=== PATIENT | female | born 1980 | race Caucasian/White ===

== ENCOUNTER 2020-06-27 08:20 | Outpatient (REF) | payer OTHER, SELFPAY ==
[2020-06-27 11:19] LABS: MANUAL DIFF FLAG NO
[2020-06-27 11:25] LABS: Basophils Absolute Auto 0.1 X10*3/uL (0.0-0.2); Basophils Percent Auto 0.6 % (0-2); Eosinophils Absolute Auto 0.2 X10*3/uL (0.0-0.4); Eosinophils Percent Auto 2.1 % (0-4); Hematocrit 38.3 % (37-47); Hemoglobin 12.9 g/dl (12.0-16.0); Imm Gran Abs Auto 0.05 X10*3/uL (0.00-0.03); Imm Gran Pct Auto 0.5 % (0.0-0.4); Lymphocytes Absolute Auto 1.9 X10*3/uL (1.2-4.9); Lymphocytes Percent Auto 18.2 % (20-40); Mean Corpuscular HGB Conc 33.7 g/dl (31.0-35.0); Mean Corpuscular Hemoglobin 30.7 pg (27.0-33.0); Mean Corpuscular Volume 91.2 fL (80-98); Mean Platelet Volume 10.3 fL (9.4-12.3); Monocytes Absolute Auto 0.7 X10*3/uL (0.1-1.2); Monocytes Percent Auto 6.4 % (2-11); Neutrophils Absolute Auto 7.6 X10*3/uL (2.0-8.3); Neutrophils Percent Auto 72.2 % (45-73); Platelet Count 288 X10*3/uL (160-400); Red Cell Distribution Width 12.4 % (11.0-16.0); White Blood Count 10.6 X10*3/uL (4.8-10.8)
[2020-06-27 11:42] LABS: Cholesterol 192 mg/dL; HDL Cholesterol 46 mg/dL; LDL Cholesterol Calculated 117 mg/dl; Triglycerides 149 mg/dL
[2020-06-27 12:15] LABS: TSH reflex Free T4 1.27 mIU/mL (0.32-4.0)
== END 2020-06-27 08:21 | disposition home or self-care (01) ==
LOC: HO.HMGCLDS 08:20
PROVIDERS: PCP Internal Medicine; Visit Provider Internal Medicine
DX: Z00.01 Encounter for general adult medical examination with abnormal findings (principal); Z13.220 Encounter for screening for lipoid disorders; Z13.29 Encounter for screening for other suspected endocrine disorder
CPT/HCPCS: 36415; 80061; 84443; 85025

== ENCOUNTER 2021-03-16 08:07 | Outpatient (REF) | payer OTHER, SELFPAY ==
[2021-03-16 11:34] LABS: Thyroid Stimulating Hormone 1.49 uIU/mL (0.32-4.0)
[2021-03-17 11:01] LABS: Follicle Stimulating Hormone 3.8 mIU/mL
== END 2021-03-16 08:08 | disposition home or self-care (01) ==
LOC: HO.LAB 08:07
PROVIDERS: PCP Internal Medicine; Visit Provider Advanced Practice Midwife
DX: Z01.419 Encounter for gynecological examination (general) (routine) without abnormal findings (principal); R23.2 Flushing; L73.2 Hidradenitis suppurativa
CPT/HCPCS: 36415; 83001; 84443

== ENCOUNTER 2022-04-09 13:40 | Outpatient (REF) | payer OTHER, SELFPAY ==
[2022-04-09 16:53] LABS: Estimated Average Glucose 117 mg/dL; Hemoglobin A1c % 5.7 %
== END 2022-04-09 13:41 | disposition home or self-care (01) ==
LOC: HO.HMGCLDS 13:40
PROVIDERS: PCP Internal Medicine; Visit Provider Physician Assistant
DX: M79.671 Pain in right foot (principal); M79.672 Pain in left foot
CPT/HCPCS: 36415; 83036

== ENCOUNTER 2022-04-14 14:04 | Outpatient (REF) | payer OTHER, SELFPAY ==
--- NOTE | ~2022-04-14 | XR_ITS ---
EXAMINATION: XR FOOT, RIGHT XR FOOT, LEFT CLINICAL INFORMATION: Right foot pain. Left foot pain. COMPARISON: None TECHNIQUE: 3 views of each foot. FINDINGS: RIGHT FOOT: Normal osseous mineralization. No focal erosion is noted. There is no evidence of acute fracture or dislocation. Plantar and posterior calcaneal spurs are noted at the insertion of plantar aponeurosis and Achilles tendon respectively. No significant degenerative changes are noted in the foot otherwise. No dystrophic soft tissue calcifications. LEFT FOOT: Normal osseous mineralization. No focal erosion. Very mild hallux valgus deformity is noted at 1st MTP joint with mild degenerative changes. No evidence of acute fracture or dislocation. Plantar calcaneal spur is noted at the insertion of plantar aponeurosis. A somewhat curvilinear density is noted in the vicinity of the calcaneocuboid articulation on the plantar aspect, best seen on the lateral and oblique views. XR/XR foot LT min 3V IMPRESSION: 1. No evidence of acute osseous abnormality in the right foot. No focal erosion. Right plantar and posterior calcaneal spurs. 2. No acute osseous abnormality in the left foot. No focal erosion. Left plantar calcaneal spur. A curvilinear density in the vicinity of calcaneocuboid articulation on the plantar aspect is nonspecific, may represent dystrophic soft tissue calcification or ossification.
--- NOTE | ~2022-04-14 | XR_ITS ---
EXAMINATION: XR FOOT, RIGHT XR FOOT, LEFT CLINICAL INFORMATION: Right foot pain. Left foot pain. COMPARISON: None TECHNIQUE: 3 views of each foot. FINDINGS: RIGHT FOOT: Normal osseous mineralization. No focal erosion is noted. There is no evidence of acute fracture or dislocation. Plantar and posterior calcaneal spurs are noted at the insertion of plantar aponeurosis and Achilles tendon respectively. No significant degenerative changes are noted in the foot otherwise. No dystrophic soft tissue calcifications. LEFT FOOT: Normal osseous mineralization. No focal erosion. Very mild hallux valgus deformity is noted at 1st MTP joint with mild degenerative changes. No evidence of acute fracture or dislocation. Plantar calcaneal spur is noted at the insertion of plantar aponeurosis. A somewhat curvilinear density is noted in the vicinity of the calcaneocuboid articulation on the plantar aspect, best seen on the lateral and oblique views. XR/XR foot RT min 3V IMPRESSION: 1. No evidence of acute osseous abnormality in the right foot. No focal erosion. Right plantar and posterior calcaneal spurs. 2. No acute osseous abnormality in the left foot. No focal erosion. Left plantar calcaneal spur. A curvilinear density in the vicinity of calcaneocuboid articulation on the plantar aspect is nonspecific, may represent dystrophic soft tissue calcification or ossification.
== END 2022-04-14 14:05 | disposition home or self-care (01) ==
LOC: HO.HMGCX 14:04
PROVIDERS: PCP Internal Medicine; Visit Provider Internal Medicine
DX: M79.671 Pain in right foot (principal); M79.672 Pain in left foot
CPT/HCPCS: 73630

== ENCOUNTER 2022-07-22 10:35 | Outpatient (REF) | payer OTHER, SELFPAY ==
[2022-07-23 12:10] LABS: BV Int Neg Control Negative (Negative); BV Int Pos Control Positive (Positive)
[2022-07-24 03:04] LABS: HPV mRNA E6/E7 rflx Not Detected (Not Detected)
== END 2022-07-22 10:36 | disposition home or self-care (01) ==
LOC: HO.LNP 10:35
PROVIDERS: PCP Internal Medicine; Visit Provider Advanced Practice Midwife
DX: Z01.419 Encounter for gynecological examination (general) (routine) without abnormal findings (principal); R23.2 Flushing; N64.59 Other signs and symptoms in breast
CPT/HCPCS: 87480; 87510; 87624; 87660; 88142

== ENCOUNTER 2022-08-06 10:41 | Outpatient (REF) | payer OTHER, SELFPAY ==
--- NOTE | ~2022-08-06 | MM_ITS ---
EXAMINATION: MM DIAGNOSTIC DIGITAL BREAST TOMOSYNTHESIS, BILATERAL US BREAST TARGETED, BILATERAL CLINICAL INFORMATION: Left breast thickening 12 o'clock location. The lifetime risk of breast cancer based on the Tyrer-Cuzick Model is 10.7%. COMPARISON: Mammography: None. TECHNIQUE: Digital breast tomosynthesis is performed in both the craniocaudal and mediolateral oblique views along with computer-aided detection (CAD). Synthesized 2D images are generated from the tomosynthesis. Additional spot compression views of bilateral breasts performed in craniocaudal and mediolateral oblique projections as well as 90 degree mediolateral view of the left breast. Bilateral targeted breast ultrasound. FINDINGS: There are scattered areas of fibroglandular density (ACR BI-RADS breast composition Category b). Within the central aspect of the right breast approximately 6 cm from the nipple there is a circumscribed and mildly lobulated 5 mm density without definite fatty cleft. No suspicious grouping of microcalcifications or spiculated mass identified. Spot compression views demonstrate persistence of the density. About the deep upper outer aspect of the left breast there is what appears be a partially circumscribed density measuring 7 mm in diameter approximately 9 cm from the nipple. Spot compression views demonstrate some persistence of the density partially effacing and possibly representing superimposition of fibroglandular tissue rather than a true mass. Targeted ultrasound evaluation of both breasts do not demonstrate any abnormal cystic or solid masses. No region of abnormal distal sound shadowing was identified. No edematous change within the parenchyma is seen. Six-month follow-up bilateral mammography is suggested to ensure stability. Results are discussed with the patient at time of visit. MM/MM tomosynthesis diagnostic BI IMPRESSION: Bilateral breast densities for six-month follow-up as described. ASSESSMENT: BI-RADS 3: Probably Benign. RECOMMENDATION: Diagnostic mammography in 6 months. This patient's information was entered into a reminder system with a target due date for their next mammogram.
== END 2022-08-06 10:42 | disposition home or self-care (01) ==
LOC: HO.MAMMO 10:41
PROVIDERS: Visit Provider Advanced Practice Midwife
DX: N64.59 Other signs and symptoms in breast (principal)
CPT/HCPCS: 76642; 77062; 77066

== ENCOUNTER 2022-12-14 12:35 | Outpatient (REF) | payer OTHER, SELFPAY ==
[2022-12-14 14:29] LABS: Alanine Aminotransferase 18 U/L (0-31); Alkaline Phosphatase 62 U/L (39-117); Anion Gap 14 (12-20); Aspartate Amino Transferase 17 U/L (5-31); Bilirubin Total 0.5 mg/dL (0.0-1.0); Blood Urea Nitrogen 11 mg/dL (9-16); Calcium 9.3 mg/dL (8.4-10.2); Carbon Dioxide 20 mmol/L (22-29); Chloride 106 mmol/L (96-108); Estimated Glomerular Filt Rate > 60; Glucose Fasting 91 mg/dL (60-99); Potassium 4.1 mmol/L (3.3-5.1); Sodium 136 mmol/L (135-145); Total Protein 7.5 g/dL (6.5-8.0)
[2022-12-14 14:57] LABS: Folate 13.1 ng/mL (> or = 4.0); TSH reflex Free T4 2.25 uIU/mL (0.32-4.0); Vitamin B12 559 pg/mL (200-900); Vitamin D 25-OH Total 32.7 ng/mL (>30)
== END 2022-12-14 12:36 | disposition home or self-care (01) ==
LOC: HO.HMGCLDS 12:35
PROVIDERS: PCP Internal Medicine; Visit Provider Internal Medicine
DX: F41.8 Other specified anxiety disorders (principal); E66.9 Obesity, unspecified; I10 Essential (primary) hypertension
CPT/HCPCS: 36415; 80053; 82306; 82607; 82746; 84443

== ENCOUNTER 2023-02-03 09:04 | Outpatient (AMB) | payer OTHER, SELFPAY ==
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
[2023-02-03 09:58] VITALS: BP 120/72; PULSE 87; TEMP 36.6; O2SAT 98
== END 2023-02-03 10:10 | disposition home or self-care (01) ==
PROVIDERS: PCP Internal Medicine; Visit Provider Physician Assistant
DX: L03.90 Cellulitis, unspecified (principal)
CPT/HCPCS: 99213

== ENCOUNTER 2023-03-01 11:34 | Outpatient (REF) | payer OTHER, SELFPAY ==
--- NOTE | ~2023-03-01 | MM_ITS ---
EXAMINATION: MM DIAGNOSTIC DIGITAL BREAST TOMOSYNTHESIS, BILATERAL CLINICAL INFORMATION: The patient presents for short interval follow-up of a right breast focal asymmetry in the left breast asymmetry. The lifetime risk of breast cancer based on the Tyrer-Cuzick Model is 10.7%. COMPARISON: Mammography: This study is compared to the prior mammograms dating back to 08/06/2022. TECHNIQUE: Digital breast tomosynthesis is performed in both the craniocaudal and mediolateral oblique views along with computer-aided detection (CAD). Synthesized 2D images are generated from the tomosynthesis. Bilateral 90 degree views of each breast, CC and MLO spot compression of the right breast and MLO spot compression of the left breast. FINDINGS: There are scattered areas of fibroglandular density (ACR BI-RADS breast composition Category b). Bilateral additional mammographic imaging reveals no persistent underlying abnormalities. There are no mammographic signs of malignancy. Results are provided to the patient at time of visit by the technologist. MM/MM tomosynthesis diagnostic BI IMPRESSION: No mammographic evidence of malignancy. ASSESSMENT: BI-RADS BI-RADS 1 - Negative RECOMMENDATION: 1 year F/U This patient's information was entered into a reminder system with a target due date for their next mammogram.
== END 2023-03-01 11:35 | disposition home or self-care (01) ==
LOC: HO.MAMMO 11:34
PROVIDERS: PCP Internal Medicine; Visit Provider Internal Medicine
DX: R92.2 Inconclusive mammogram (principal)
CPT/HCPCS: 77062; 77066

== ENCOUNTER → 2023-03-01 12:00 | Outpatient (BNV) | payer OTHER, SELFPAY | PROVIDERS: PCP Internal Medicine; Visit Provider Radiology Diagnostic Radiology | DX: N64.59 Other signs and symptoms in breast (principal) | CPT/HCPCS: 77062; 77066 ==

== ENCOUNTER 2023-03-11 10:41 | Outpatient (AMB) | payer OTHER, SELFPAY ==
[2023-03-11 10:54] VITALS: BP 122/70; PULSE 110; O2SAT 98; BMI 39.9
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
== END 2023-03-11 12:15 | disposition home or self-care (01) ==
PROVIDERS: PCP Internal Medicine; Visit Provider Internal Medicine
DX: E66.09 Other obesity due to excess calories (principal); Z68.39 Body mass index [BMI] 39.0-39.9, adult
CPT/HCPCS: 99213; 99499

== ENCOUNTER 2023-05-05 13:05 | Outpatient (AMB) | payer OTHER, SELFPAY ==
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
[2023-05-05 13:07] VITALS: BP 142/80; PULSE 102; TEMP 36.6; O2SAT 98; BMI 40.3
== END 2023-05-05 14:07 | disposition home or self-care (01) ==
PROVIDERS: PCP Internal Medicine; Visit Provider Nurse Practitioner Family
DX: M54.50 Low back pain, unspecified (principal)
CPT/HCPCS: 99213

== ENCOUNTER 2023-05-05 13:32 | Outpatient (REF) | payer OTHER, SELFPAY ==
--- NOTE | ~2023-05-05 | XR_ITS ---
EXAMINATION: XR LUMBOSACRAL SPINE CLINICAL INFORMATION: Low back pain. COMPARISON: Radiograph lumbar spine 04/14/2009. TECHNIQUE: Three views of the lumbosacral spine. FINDINGS: Transitional anatomy with lumbarization of S1. No evidence of acute compression deformity or traumatic subluxation. Mild to moderate intervertebral disc height loss and facet arthropathy in the lower lumbar spine leading to certain degree of neural foraminal encroachment. Multilevel anterior osteophytes, more noticeable in the upper lumbar spine. Symmetric SI joints. No significant paraspinal soft tissue abnormality. XR/XR lumbar spine 2-3V IMPRESSION: 1. No acute compression deformity or malalignment. 2. Mild to moderate lower lumbar spondylosis.
== END 2023-05-05 13:33 | disposition home or self-care (01) ==
LOC: HO.HMGCX 13:32
PROVIDERS: PCP Internal Medicine; Visit Provider Nurse Practitioner Family
DX: M54.50 Low back pain, unspecified (principal)
CPT/HCPCS: 72100

== ENCOUNTER 2023-07-26 10:12 | Outpatient (AMB) | payer OTHER, SELFPAY ==
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
[2023-07-26 10:25] VITALS: BP 124/84; BMI 40.3
== END 2023-07-26 10:54 | disposition home or self-care (01) ==
PROVIDERS: Visit Provider Advanced Practice Midwife
DX: Z01.419 Encounter for gynecological examination (general) (routine) without abnormal findings (principal)
CPT/HCPCS: 99396

== ENCOUNTER → 2023-07-26 10:12 | Outpatient (BNVA) | payer OTHER, SELFPAY | PROVIDERS: Visit Provider Advanced Practice Midwife | DX: Z01.419 Encounter for gynecological examination (general) (routine) without abnormal findings (principal) | CPT/HCPCS: 99396 ==

== ENCOUNTER 2023-07-27 07:17 | Outpatient (REF) | payer OTHER, SELFPAY ==
[2023-07-27 13:24] LABS: HCG Quantitative < 2 mIU/mL
[2023-07-29 09:54] LABS: Follicle Stimulating Hormone 6.8 mIU/mL; Prolactin 6.7 ng/mL
[2023-07-29 11:53] LABS: DHEA Sulfate 200 mcg/dL (15-205)
[2023-08-02 14:08] LABS: Testosterone, Free 3.8 pg/mL (0.1-6.4); Testosterone, Total 30 ng/dL (2-45)
== END 2023-07-27 07:18 | disposition home or self-care (01) ==
LOC: HO.HMGCLDS 07:17
PROVIDERS: PCP Internal Medicine; Visit Provider Advanced Practice Midwife
DX: L68.0 Hirsutism (principal); N91.2 Amenorrhea, unspecified; R23.2 Flushing
CPT/HCPCS: 36415; 82627; 83001; 83498; 84146; 84402; 84403; 84702

== ENCOUNTER 2023-08-10 07:33 | Outpatient (AMB) | payer OTHER, SELFPAY ==
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
[2023-08-10 07:42] VITALS: BP 138/88; BMI 40.3
== END 2023-08-10 08:11 | disposition home or self-care (01) ==
PROVIDERS: PCP Internal Medicine; Visit Provider Advanced Practice Midwife
DX: N91.1 Secondary amenorrhea (principal); Z71.2 Person consulting for explanation of examination or test findings
CPT/HCPCS: 99213

== ENCOUNTER → 2023-08-10 07:33 | Outpatient (BNVA) | payer OTHER, SELFPAY | PROVIDERS: PCP Internal Medicine; Visit Provider Advanced Practice Midwife | DX: Z71.2 Person consulting for explanation of examination or test findings (principal); N91.1 Secondary amenorrhea | CPT/HCPCS: 99212 ==

== ENCOUNTER 2023-08-24 12:59 | Outpatient (AMB) | payer OTHER, SELFPAY ==
[2023-08-24 13:30] VITALS: BP 138/74; PULSE 98; O2SAT 97; BMI 40.5
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
== END 2023-08-24 15:49 | disposition home or self-care (01) ==
PROVIDERS: PCP Internal Medicine; Visit Provider Internal Medicine
DX: R20.8 Other disturbances of skin sensation (principal); R09.89 Other specified symptoms and signs involving the circulatory and respiratory systems; B35.1 Tinea unguium
CPT/HCPCS: 99213

== ENCOUNTER 2023-08-26 15:03 | Outpatient (AMB) | payer OTHER, SELFPAY ==
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
[2023-08-26 15:22] VITALS: BP 130/80; BMI 40.4
== END 2023-08-26 15:48 | disposition home or self-care (01) ==
LOC: HO.HWS 15:03
PROVIDERS: PCP Internal Medicine; Visit Provider Advanced Practice Midwife
DX: N92.6 Irregular menstruation, unspecified (principal)
CPT/HCPCS: 99213

== ENCOUNTER → 2023-08-26 15:03 | Outpatient (BNVA) | payer OTHER, SELFPAY | PROVIDERS: PCP Internal Medicine; Visit Provider Advanced Practice Midwife | DX: N92.6 Irregular menstruation, unspecified (principal) | CPT/HCPCS: 99212 ==

== ENCOUNTER 2023-09-14 13:07 | Outpatient (REF) | payer OTHER, SELFPAY ==
--- NOTE | ~2023-09-14 | US_ITS ---
EXAMINATION: Noninvasive assessment of the arteries of both lower extremities to include a single level PVR exam and ANKLE BRACHIAL INDICES (ABIs). CLINICAL INFORMATION: Peripheral vascular disease COMPARISON: None available. TECHNIQUE: The ankle/brachial indices of the distal posterior tibial and the dorsalis pedis arteries were obtained of the lower extremity arterial system bilaterally; along with pressures and pulse volume recordings at the ankle level. The study was performed at rest. FINDINGS: 1. ANKLE-BRACHIAL INDICES: RIGHT: 1.06 LEFT: 1.04 2. ANKLE PVR WAVEFORMS: RIGHT: Abnormal LEFT: Abnormal US/US STEPHIE complete IMPRESSION: Normal resting peripheral arterial testing without evidence of hemodynamically significant stenosis. Note, there is symmetric loss of the normal dicrotic notch of the PVR waveforms.
== END 2023-09-14 13:08 | disposition home or self-care (01) ==
LOC: HO.US 13:07
PROVIDERS: PCP Internal Medicine; Visit Provider Internal Medicine
DX: R09.89 Other specified symptoms and signs involving the circulatory and respiratory systems (principal); R20.8 Other disturbances of skin sensation
CPT/HCPCS: 93923

== ENCOUNTER 2023-09-23 14:35 | Outpatient (REF) | payer OTHER, SELFPAY ==
--- NOTE | 2023-09-23 14:37 | EMG_ITS ---
Chief complaint: At least 6 months of burning on both feet but denies back pain. Reviewed past lumbar x-ray which showed multilevel spondylosis. Reason for referral: Evaluate for neuropathy Referred by: Dr. Miller Procedure done: Bilateral lower extremity NCS/EMG Precautions and/or limitations: None The limb temperature was monitored continuously and remained between 32-36 degrees C during the performance of the NCS. Nerve Conduction Studies Anti Sensory Summary Table ?Stim Site NR Onset (ms) Norm Onset (ms) Peak (ms) Norm Peak (ms) O-P Amp (?V) Norm O-P Amp Site1 Site2 Delta-0 (ms) Dist (cm) Jason (m/s) Norm Jason (m/s) Left Sural Anti Sensory (Lat Mall) Calf ? 1.0 3.1 <4.0 5.8 >5.0 Calf Lat Mall 1.0 14.0 140 Calf#2 ? 1.9 2.9 11.6 Right Sural Anti Sensory (Lat Mall) Calf ? 1.8 2.8 <4.0 5.4 >5.0 Calf Lat Mall 1.8 14.0 78 Calf#2 ? 2.3 3.2 4.4 Motor Summary Table ?Stim Site NR Onset (ms) Norm Onset (ms) O-P Amp (mV) Norm O-P Amp iAmp (mV) Amp (1st) (%) Site1 Site2 Delta-0 (ms) Dist (cm) Jason (m/s) Norm Jason (m/s) Right Peroneal Motor (Ext Dig Brev) Ankle ? 4.7 <4.0 2.1 >2.5 2.5 100.0 Ankle Ext Dig Brev 4.7 0.0 B Fib ? 12.6 1.5 2.0 71.4 B Fib Ankle 7.9 33.0 42 >40 Poplt ? 14.1 1.4 1.9 66.7 Poplt B Fib 1.5 8.6 57 >40 Left Tibial Motor (Abd Ferraro Brev) Ankle ? 4.7 <5 0.7 >2.5 0.7 100.0 Ankle Abd Ferraro Brev 4.7 0.0 Knee ? 16.4 1.2 1.7 171.4 Knee Ankle 11.7 39.0 33 >40 Right Tibial Motor (Abd Ferraro Brev) Ankle ? 4.5 <5 1.1 >2.5 1.2 100.0 Ankle Abd Ferraro Brev 4.5 0.0 Knee ? 15.6 0.4 0.7 36.4 Knee Ankle 11.1 40.0 36 >40 EMG ?Side Muscle Nerve Root Ins Act Fibs Psw Amp Dur Poly Recrt Int Pat Comment Right AbdHallucis MedPlantar S1-2 Incr 1+ 1+ Nml Nml 0 Nml Complete Right AntTibialis Dp Br Peron L4-5 Nml Nml Nml Nml Nml 0 Nml Complete Right PostTibialis Tibial L5, S1 Nml Nml Nml Nml Nml 0 Nml Complete Right MedGastroc Tibial S1-2 Nml Nml Nml Nml Nml 0 Nml Complete Right VastusMed Femoral L2-4 Nml Nml Nml Nml Nml 0 Nml Complete Left AbdHallucis MedPlantar S1-2 Incr 1+ 1+ Nml Nml 0 Nml Complete Left AntTibialis Dp Br Peron L4-5 Nml Nml Nml Nml Nml 0 Nml Complete Left PostTibialis Tibial L5, S1 Nml Nml Nml Nml Nml 0 Nml Complete Left MedGastroc Tibial S1-2 Nml Nml Nml Nml Nml 0 Nml Complete Left VastusMed Femoral L2-4 Nml Nml Nml Nml Nml 0 Nml Complete Paraspinal EMG ?Side Muscle Nerve Root Ins Act Fibs Psw Comment Right Lumbar Upper Rami Nml Nml Nml Right Lumbar Mid Rami Nml Nml Nml Right Lumbar Lower Rami Nml Nml Nml Left Lumbar Upper Rami Nml Nml Nml Left Lumbar Mid Rami Nml Nml Nml Left Lumbar Lower Rami Nml Nml Nml FINDINGS: Right peroneal nerve showed prolonged distal latency, small amplitude and normal conduction velocity. Right tibial nerve showed normal distal latency, small amplitude and normal conduction velocity. Left tibial nerve showed normal distal latency, small amplitude and normal conduction velocity. Bilateral sural nerves were within normal. Concentric needle EMG was performed in selected muscles of the bilateral lower extremity and lumbar paraspinals. Study revealed Signs of electric abnormalities as shown in the table below. Bilateral AH muscles showed increased insertional activity, PSWs and fibrillations. IMPRESSION: 1. This is an abnormal study. 2. There is electrodiagnostic evidence for bilateral L5-S1 radiculopathy. 3. There is no electrodiagnostic evidence for lumbosacral plexopathy, or] peripheral neuropathy. CLINICAL COMMENT: Further clinical correlation recommended. Thank you for your kind referral. Ellen Ware MD, JOSE Board Certified, [place] [employer] and [employer] (ABPMR) Board Certified, [place] [employer] Electro[employer] (ABEM) CODIN [id number] x 2 MTDD
== END 2023-09-23 14:36 | disposition home or self-care (01) ==
LOC: HO.NEURO 14:35
PROVIDERS: PCP Internal Medicine; Visit Provider Internal Medicine
DX: R20.8 Other disturbances of skin sensation (principal)
CPT/HCPCS: 95886; 95909

== ENCOUNTER → 2023-09-23 14:37 | Outpatient (BNV) | payer OTHER, SELFPAY | PROVIDERS: PCP Internal Medicine; Visit Provider Physical Medicine & Rehabilitation | DX: M54.16 Radiculopathy, lumbar region (principal); M79.671 Pain in right foot; M79.672 Pain in left foot | CPT/HCPCS: 95886; 95909 ==

== ENCOUNTER 2023-11-18 08:04 | Outpatient (AMB) | payer OTHER, SELFPAY ==
[2023-11-18 08:07] VITALS: BP 118/84; PULSE 107; TEMP 36.9; O2SAT 98; BMI 40.5
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
== END 2023-11-18 08:26 | disposition home or self-care (01) ==
PROVIDERS: PCP Internal Medicine; Visit Provider Internal Medicine
DX: B02.9 Zoster without complications (principal)
CPT/HCPCS: 99213

== ENCOUNTER 2024-01-12 14:02 | Outpatient (AMB) | payer OTHER, SELFPAY ==
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
[2024-01-12 14:06] VITALS: BP 138/86; PULSE 96; RESP 17; O2SAT 100; BMI 41.2
== END 2024-01-12 14:38 | disposition home or self-care (01) ==
PROVIDERS: PCP Internal Medicine; Visit Provider Psychiatry & Neurology Neurology
DX: G25.81 Restless legs syndrome (principal); M54.17 Radiculopathy, lumbosacral region
CPT/HCPCS: 99204

== ENCOUNTER → 2024-01-12 14:02 | Outpatient (BNVA) | payer OTHER, SELFPAY | PROVIDERS: PCP Internal Medicine; Visit Provider Psychiatry & Neurology Neurology | DX: G25.81 Restless legs syndrome (principal); M54.17 Radiculopathy, lumbosacral region; R94.130 Abnormal response to nerve stimulation, unspecified | CPT/HCPCS: 99202 ==

== ENCOUNTER 2024-01-12 14:39 | Outpatient (REF) | payer OTHER, SELFPAY ==
[2024-01-12 17:30] LABS: MANUAL DIFF FLAG NO
[2024-01-12 17:35] LABS: Basophils Absolute Auto 0.1 X10*3/uL (0.0-0.2); Basophils Percent Auto 0.6 % (0-2); Eosinophils Absolute Auto 0.2 X10*3/uL (0.0-0.4); Eosinophils Percent Auto 1.4 % (0-4); Hematocrit 36.8 % (37.0-47.0); Hemoglobin 12.7 g/dl (12.0-16.0); Imm Gran Abs Auto 0.06 X10*3/uL (0.00-0.03); Imm Gran Pct Auto 0.5 % (0.0-0.4); Lymphocytes Percent Auto 16.1 % (20-40); Mean Corpuscular HGB Conc 34.5 g/dl (31.0-35.0); Mean Corpuscular Hemoglobin 30.1 pg (27.0-33.0); Mean Corpuscular Volume 87.2 fL (80.0-98.0); Mean Platelet Volume 10.7 fL (9.4-12.3); Monocytes Absolute Auto 0.8 X10*3/uL (0.1-1.2); Monocytes Percent Auto 6.5 % (2-11); Neutrophils Absolute Auto 9.3 x10*3/uL (2.0-8.3); Neutrophils Percent Auto 74.9 % (45-73); Platelet Count 265 X10*3/uL (160-400); Red Blood Count 4.22 X10*6/uL (4.20-5.50); White Blood Count 12.4 X10*3/uL (4.8-10.8)
[2024-01-12 17:52] LABS: Alanine Aminotransferase 16 U/L (0-31); Albumin Level 3.7 g/dL (3.5-5.0); Alkaline Phosphatase 71 U/L (39-117); Anion Gap 13 (12-20); Aspartate Amino Transferase 17 U/L (5-31); Bilirubin Total 0.2 mg/dL (0.0-1.0); Blood Urea Nitrogen 12 mg/dL (9-16); Calcium 9.1 mg/dL (8.4-10.2); Carbon Dioxide 25 mmol/L (22-29); Chloride 105 mmol/L (96-108); Estimated Glomerular Filt Rate > 60; Glucose Random 124 mg/dL (60-115); Sodium 139 mmol/L (135-145); Total Protein 7.1 g/dL (6.5-8.0)
[2024-01-12 18:08] LABS: Ferritin 141 ng/mL (10-250); TSH reflex Free T4 1.46 uIU/mL (0.32-4.0)
[2024-01-12 18:20] LABS: Folate 8.2 ng/mL (> or = 4.0); Vitamin B12 391 pg/mL (200-900)
[2024-01-12 18:21] LABS: Erythrocyte Sedimentation Rate 17 MM/HR (0-20)
[2024-01-17 13:53] LABS: Vitamin D 25-OH, D2 <4 ng/mL; Vitamin D 25-OH, D3 26 ng/mL; Vitamin D 25-OH, Total 26 ng/mL (30-100)
== END 2024-01-12 14:40 | disposition home or self-care (01) ==
LOC: HO.HKASLDS 14:39
PROVIDERS: Visit Provider Psychiatry & Neurology Neurology
DX: M54.17 Radiculopathy, lumbosacral region (principal); G25.81 Restless legs syndrome
CPT/HCPCS: 36415; 80053; 82306; 82607; 82728; 82746; 84443; 85025; 85652

== ENCOUNTER 2024-01-23 13:11 | Outpatient (AMB) | payer OTHER, SELFPAY ==
[2024-01-23 13:23] VITALS: BP 132/80; PULSE 92; O2SAT 97; BMI 40.6
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
== END 2024-01-23 15:33 | disposition home or self-care (01) ==
PROVIDERS: PCP Internal Medicine; Visit Provider Internal Medicine
DX: R94.130 Abnormal response to nerve stimulation, unspecified (principal); E11.9 Type 2 diabetes mellitus without complications
CPT/HCPCS: 99214; G2211

== ENCOUNTER 2024-02-20 07:05 | Outpatient (REF) | payer OTHER, SELFPAY ==
[2024-02-20 10:37] LABS: Estimated Average Glucose 134 mg/dL; Hemoglobin A1c % 6.3 % (<6.0)
== END 2024-02-20 07:06 | disposition home or self-care (01) ==
LOC: HO.HMGCLDS 07:05
PROVIDERS: PCP Internal Medicine; Visit Provider Internal Medicine
DX: E11.9 Type 2 diabetes mellitus without complications (principal); R94.130 Abnormal response to nerve stimulation, unspecified
CPT/HCPCS: 36415; 83036

== ENCOUNTER 2024-02-24 07:53 | Outpatient (AMB) | payer OTHER, SELFPAY ==
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
== END 2024-02-24 08:59 | disposition home or self-care (01) ==
LOC: HO.HMGC 07:53
PROVIDERS: PCP Internal Medicine; Visit Provider Internal Medicine
DX: E11.9 Type 2 diabetes mellitus without complications (principal); R20.8 Other disturbances of skin sensation; M54.17 Radiculopathy, lumbosacral region
CPT/HCPCS: 99214; G2211

== ENCOUNTER 2024-04-12 14:00 | Outpatient (RCR) | payer OTHER, SELFPAY ==
--- NOTE | 2024-03-12 08:36 | MHC.PT.EP ---
[facility] [place] Office [place] Office [place] Office [address] Erin Gallo [address] [phone] F: [phone] F: [phone] F: [phone] F: [phone] Physical Therapy Plan of Care Date of Evaluation: 03/12/24 Date of Surgery: n/a Diagnosis: lumbosacral w/ radiculopathy at L5 Assessment: Patient is a 43 year old female presenting to PT with complaints of pain in her low back. Pt reports onset of pain began a couple months ago due to insidious onset. She presents today with impairments in pain, ROM, core strength, posture, hip strength. 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 Pt expresses long-term goal of reducing pain, and is motivated to work towards this in PT. Clinical presentation today is most consistent with signs and sx associated with low back pain with radicular sx and pt will benefit from skilled PT 2 week x 4 weeks to address the following problems and impairments noted upon evaluation: pain, ROM, core strength, posture, hip strength. These problems limit the patient with the following functional activities: work, ADLs, bending, lifting. The prescribed treatment plan of care is medically necessary. Co-morbidities of T2DM were identified and taken into considerations of plan of care. Pt was educated on HEP, role of PT, prognosis, POC. Frequency and Duration: The patient will be seen 2 x wee x 4 weeks Short Term Goals: Pt will demonstrate centralization of sx in 2 weeks. Pt will demonstrate improved hip MMT strength by 1/3 grade in 2 weeks for improved lumbopelvic stability. Pt will demonstrate ability to move through available lumbar ROM with min to no pain in 2 weeks. Senior Care Goals: Pt will demonstrate improved Orion score by 10% in 4 weeks for improved functional mobility. Pt will demonstrate ability to work with min to no pain in 4 weeks for return to PLOF. Pt will demonstrate ability to bend with min to no pain in 4 weeks for improved ability to complete ADLs. Treatment Plan: Modalities to reduce pain, spasms and effusion. Manual therapy to restore motion and function. Therapeutic exercise to improve strength and flexibility. Neuromuscular re-education for posture and balance. Therapeutic activities to return to functional activities of daily living. Electronically signed by: Jeannie Pelaez, PT, DPT, ATC Please sign and return to therapist. Thank you for your referral.
--- NOTE | 2024-04-12 14:46 | MHC.PT.DC ---
[facility] [place] Office [place] Office [place] Office [address] Erin Gallo [address] [phone] F: [phone] F: [phone] F: [phone] F: [phone] Physical Therapy Discharge Report Diagnosis: lumbosacral w/ radiculopathy at L5 Date of Surgery: n/a Date of Evaluation: 03/12/24 Date of Discharge: 04/12/24 Treatments to Date: 9 Cancellations to Date: 0 No Shows to Date: 0 Discharge Status: Achieved Goals Improved Function Independent with HEP Discharge Summary: 04/12/2024: Pt has made progress since start of care. Her sx have centralized and she is no longer experiencing back pain. She is independent and compliant with her HEP. At this time max benefits of PT have been provided and skilled PT is no longer indicated. She is in agreement with d/c today and understands the importance of continuing her HEP for residential management. Electronically signed by: Jeannie Pelaez, PT, DPT, ATC Please sign and return to therapist. Thank you for your referral.
== END 2024-04-12 14:46 | disposition home or self-care (01) ==
LOC: HO.PTCHIC 14:00
PROVIDERS: PCP Internal Medicine; Visit Provider Nurse Practitioner Family
DX: M54.17 Radiculopathy, lumbosacral region (principal)
CPT/HCPCS: 97110; 97140; 97161

== ENCOUNTER 2024-05-18 06:52 | Outpatient (REF) | payer OTHER, SELFPAY ==
[2024-05-18 10:35] LABS: Alanine Aminotransferase 22 U/L (0-31); Anion Gap 11 (12-20); Aspartate Amino Transferase 26 U/L (5-31); Blood Urea Nitrogen 8 mg/dL (9-16); Calcium 9.2 mg/dL (8.4-10.2); Carbon Dioxide 24 mmol/L (22-29); Chloride 104 mmol/L (96-108); Cholesterol 152 mg/dL (<200); Estimated Glomerular Filt Rate > 60; Glucose Fasting 162 mg/dL (60-99); HDL Cholesterol 35 mg/dL (>40); LDL Cholesterol Calculated 83 mg/dL (<100); Sodium 135 mmol/L (135-145); Triglycerides 170 mg/dL (<150)
[2024-05-18 10:56] LABS: Vitamin D 25-OH Total 40.3 ng/mL (>30)
== END 2024-05-18 06:53 | disposition home or self-care (01) ==
LOC: HO.HMGCLDS 06:52
PROVIDERS: PCP Internal Medicine; Visit Provider Internal Medicine
DX: E11.9 Type 2 diabetes mellitus without complications (principal); R94.130 Abnormal response to nerve stimulation, unspecified
CPT/HCPCS: 36415; 80048; 80061; 82306; 84450; 84460

== ENCOUNTER 2024-05-22 12:44 | Outpatient (REF) | payer OTHER, SELFPAY ==
[2024-05-22 17:38] LABS: Creatinine Urine 284.21 mg/dL; Microalbum/Creatinine Ratio Ur 13.3 ug/mg cr (<30)
== END 2024-05-22 12:45 | disposition home or self-care (01) ==
LOC: HO.HMGCLDS 12:44
PROVIDERS: PCP Internal Medicine; Visit Provider Internal Medicine
DX: E11.9 Type 2 diabetes mellitus without complications (principal); R94.130 Abnormal response to nerve stimulation, unspecified
CPT/HCPCS: 82043; 82570

== ENCOUNTER 2024-05-25 12:47 | Outpatient (AMB) | payer OTHER, SELFPAY ==
[2024-05-25 12:49] VITALS: BP 140/82; PULSE 90; O2SAT 98; BMI 40.3
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
== END 2024-05-25 13:59 | disposition home or self-care (01) ==
LOC: HO.HMCC 12:48
PROVIDERS: PCP Internal Medicine; Visit Provider Nurse Practitioner Family
DX: E11.9 Type 2 diabetes mellitus without complications (principal); F41.8 Other specified anxiety disorders; G47.33 Obstructive sleep apnea (adult) (pediatric); Z99.89 Dependence on other enabling machines and devices; E66.09 Other obesity due to excess calories; Z68.39 Body mass index [BMI] 39.0-39.9, adult; Z00.00 Encounter for general adult medical examination without abnormal findings; Z13.9 Encounter for screening, unspecified

== ENCOUNTER → 2024-05-25 12:47 | Outpatient (BNVA) | payer OTHER, SELFPAY | PROVIDERS: PCP Internal Medicine; Visit Provider Nurse Practitioner Family | DX: Z00.01 Encounter for general adult medical examination with abnormal findings (principal); E11.9 Type 2 diabetes mellitus without complications; F41.8 Other specified anxiety disorders; G47.33 Obstructive sleep apnea (adult) (pediatric); Z99.89 Dependence on other enabling machines and devices; E66.09 Other obesity due to excess calories; Z68.39 Body mass index [BMI] 39.0-39.9, adult | CPT/HCPCS: 83036; 96127; 99396 ==

== ENCOUNTER 2024-07-23 04:31 | Emergency (ER) | payer OTHER, SELFPAY ==
[2024-07-23 04:38] VITALS: BP 165/87; PULSE 105; RESP 16; TEMP 37.1; O2SAT 96; BMI 40.9
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
[2024-07-23 08:10] LABS: MANUAL DIFF FLAG NO
[2024-07-23 08:22] LABS: Basophils Absolute Auto 0.1 X10*3/uL (0.0-0.2); Basophils Percent Auto 0.8 % (0-2); Eosinophils Absolute Auto 0.3 X10*3/uL (0.0-0.4); Eosinophils Percent Auto 2.3 % (0-4); Hematocrit 36.9 % (37.0-47.0); Hemoglobin 12.8 g/dl (12.0-16.0); Imm Gran Abs Auto 0.09 X10*3/uL (0.00-0.03); Imm Gran Pct Auto 0.8 % (0.0-0.4); Lymphocytes Absolute Auto 2.3 X10*3/uL (1.2-4.9); Lymphocytes Percent Auto 21.5 % (20-40); Mean Corpuscular HGB Conc 34.7 g/dl (31.0-35.0); Mean Corpuscular Hemoglobin 29.8 pg (27.0-33.0); Mean Corpuscular Volume 85.8 fL (80.0-98.0); Mean Platelet Volume 9.7 fL (9.4-12.3); Monocytes Absolute Auto 0.7 X10*3/uL (0.1-1.2); Monocytes Percent Auto 6.8 % (2-11); Neutrophils Absolute Auto 7.4 x10*3/uL (2.0-8.3); Neutrophils Percent Auto 67.8 % (45-73); Platelet Count 293 X10*3/uL (160-400); Red Cell Distribution Width 12.5 % (11.0-16.0); White Blood Count 10.9 X10*3/uL (4.8-10.8)
[2024-07-23 08:23] LABS: Alanine Aminotransferase 17 U/L (0-31); Albumin Level 3.9 g/dL (3.5-5.0); Alkaline Phosphatase 83 U/L (39-117); Anion Gap 14 (12-20); Aspartate Amino Transferase 20 U/L (5-31); Bilirubin Direct 0.1 mg/dL (0.0-0.5); Bilirubin Total 0.4 mg/dL (0.0-1.0); Blood Urea Nitrogen 10 mg/dL (9-16); Calcium 9.3 mg/dL (8.4-10.2); Carbon Dioxide 23 mmol/L (22-29); Chloride 103 mmol/L (96-108); Estimated Glomerular Filt Rate > 60; Glucose Random 185 mg/dL (60-115); Magnesium 1.7 mg/dL (1.6-2.6); Potassium 4.4 mmol/L (3.3-5.1); Sodium 136 mmol/L (135-145); Total Protein 7.7 g/dL (6.5-8.0)
[2024-07-23 08:49] VITALS: BP 158/89; PULSE 88; RESP 20; TEMP 36.8; O2SAT 97
== END 2024-07-23 08:52 | disposition home or self-care (01) ==
PROVIDERS: Emergency Provider Emergency Medicine; PCP Internal Medicine
DX: E11.40 Type 2 diabetes mellitus with diabetic neuropathy, unspecified (principal); F41.9 Anxiety disorder, unspecified
CPT/HCPCS: 36415; 80048; 80076; 83735; 85025; 99283

== ENCOUNTER 2024-07-31 14:07 | Outpatient (AMB) | payer OTHER, SELFPAY ==
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
[2024-07-31 14:29] VITALS: BP 126/72; BMI 40.3
== END 2024-07-31 15:09 | disposition home or self-care (01) ==
PROVIDERS: PCP Internal Medicine; Visit Provider Advanced Practice Midwife
DX: Z01.419 Encounter for gynecological examination (general) (routine) without abnormal findings (principal); N93.9 Abnormal uterine and vaginal bleeding, unspecified; L73.2 Hidradenitis suppurativa; N39.3 Stress incontinence (female) (male); Z32.02 Encounter for pregnancy test, result negative
CPT/HCPCS: 99213; 99396; 99459

== ENCOUNTER → 2024-07-31 14:07 | Outpatient (BNVA) | payer OTHER, SELFPAY | PROVIDERS: PCP Internal Medicine; Visit Provider Advanced Practice Midwife | DX: Z01.419 Encounter for gynecological examination (general) (routine) without abnormal findings (principal); N93.9 Abnormal uterine and vaginal bleeding, unspecified; L73.2 Hidradenitis suppurativa; N39.3 Stress incontinence (female) (male) | CPT/HCPCS: 81025; 99212; 99396; 99459 ==

== ENCOUNTER 2024-08-07 14:06 | Outpatient (REF) | payer OTHER, SELFPAY ==
--- NOTE | ~2024-08-07 | US_ITS ---
EXAMINATION: US PELVIS CLINICAL INFORMATION: Abnormal uterine bleeding. COMPARISON: No recent prior. Pelvic ultrasound 02/18/2020. TECHNIQUE: Ultrasound of the pelvis is performed using both transabdominal and transvaginal transducers along with Doppler. Transvaginal imaging is performed due to inadequate visualization transabdominally. FINDINGS: Uterus: The uterus is anteverted, anteflexed, and measures 8.4 x 4.4 x 4.5 cm. There are nabothian cysts within the cervix, which otherwise images normally. The double wall endometrial thickness is 13 mm. The uterus is smooth in contour and has normal myometrial echogenicity. No visible fibroid. Adnexa: The left ovary is surgically absent. Right ovary is visualized. There is normal color flow to the right adnexa. There is no ovarian torsion. There is no pelvic ascites or fluid collection. There are no adnexal masses. Right ovary measures 5.7 x 2.8 x 3.6 cm. Volume = 30.0 mL. There are multiple follicular cysts present, the largest measuring 3.1 x 3.0 x 3.4 cm. No suspicious features. Left ovary is surgically absent. US/US pelvic and transvaginal IMPRESSION: 1. Normal uterus and endometrium. No etiology seen for abnormal uterine bleeding. If symptoms continue, MR would be recommended. 2. Numerous nabothian cysts within the cervix. Cervix otherwise normal. 3. Left ovary is surgically absent. 4. Right ovary demonstrates several follicular cysts, with dominant simple follicular cyst present measuring 3.1 x 3.0 x 3.4 cm. Electronically signed by: Toni Whalen MD 08/08/2024 10:01 AM [facility]
== END 2024-08-07 14:07 | disposition home or self-care (01) ==
LOC: HO.US 14:06
PROVIDERS: PCP Internal Medicine; Visit Provider Advanced Practice Midwife
DX: N93.9 Abnormal uterine and vaginal bleeding, unspecified (principal)
CPT/HCPCS: 76830; 76856

== ENCOUNTER → 2024-08-07 14:09 | Outpatient (BNV) | payer OTHER, SELFPAY | PROVIDERS: PCP Internal Medicine; Visit Provider Radiology Diagnostic Radiology | DX: N88.8 Other specified noninflammatory disorders of cervix uteri (principal); N83.201 Unspecified ovarian cyst, right side | CPT/HCPCS: 76830; 76856 ==

== ENCOUNTER 2024-08-13 11:17 | Outpatient (AMB) | payer OTHER, SELFPAY ==
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
[2024-08-13 11:31] VITALS: BP 126/80; BMI 40.0
== END 2024-08-13 12:06 | disposition home or self-care (01) ==
PROVIDERS: PCP Internal Medicine; Visit Provider Physician Assistant Medical
DX: R20.8 Other disturbances of skin sensation (principal); G25.81 Restless legs syndrome; G47.33 Obstructive sleep apnea (adult) (pediatric); Z99.89 Dependence on other enabling machines and devices; R53.83 Other fatigue; G47.9 Sleep disorder, unspecified; M54.17 Radiculopathy, lumbosacral region; E66.09 Other obesity due to excess calories; Z68.39 Body mass index [BMI] 39.0-39.9, adult
CPT/HCPCS: 99214

== ENCOUNTER 2024-08-13 14:22 | Outpatient (REF) | payer OTHER, SELFPAY | END 2024-08-13 14:23 | disposition home or self-care (01) | LOC: HO.MAMMO 14:22 | PROVIDERS: PCP Internal Medicine; Visit Provider Advanced Practice Midwife | DX: Z12.31 Encounter for screening mammogram for malignant neoplasm of breast (principal) | CPT/HCPCS: 77063; 77067; 99212 ==

== ENCOUNTER → 2024-08-13 14:45 | Outpatient (BNV) | payer OTHER, SELFPAY | PROVIDERS: PCP Internal Medicine; Visit Provider Internal Medicine | DX: Z12.31 Encounter for screening mammogram for malignant neoplasm of breast (principal) | CPT/HCPCS: 77063; 77067 ==

== ENCOUNTER → 2024-08-30 19:30 | Outpatient (REF) | payer OTHER, SELFPAY | LOC: HO.SL 19:30 | PROVIDERS: PCP Internal Medicine; Visit Provider Physician Assistant Medical | DX: R53.83 Other fatigue (principal); G47.9 Sleep disorder, unspecified; E66.09 Other obesity due to excess calories; Z68.39 Body mass index [BMI] 39.0-39.9, adult; Z99.89 Dependence on other enabling machines and devices | CPT/HCPCS: 95810 ==

== ENCOUNTER → 2024-08-30 21:52 | Outpatient (BNV) | payer OTHER, SELFPAY | PROVIDERS: PCP Internal Medicine; Visit Provider Psychiatry & Neurology Neurology | DX: G47.33 Obstructive sleep apnea (adult) (pediatric) (principal) | CPT/HCPCS: 95810 ==

== ENCOUNTER 2024-09-03 12:47 | Outpatient (AMB) | payer OTHER, SELFPAY ==
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
[2024-09-03 13:48] VITALS: BP 130/80; PULSE 102; O2SAT 98
== END 2024-09-03 14:58 | disposition home or self-care (01) ==
PROVIDERS: PCP Internal Medicine; Visit Provider Nurse Practitioner Family
DX: S99.922A Unspecified injury of left foot, initial encounter (principal); L73.2 Hidradenitis suppurativa

== ENCOUNTER 2024-09-03 12:47 | Outpatient (REF) | payer OTHER, SELFPAY ==
--- NOTE | ~2024-09-03 | XR_ITS ---
EXAMINATION: XR FOOT, LEFT CLINICAL INFORMATION: S99.922A - Unspecified injury of left foot, initial encounter COMPARISON: April 14, 2022. TECHNIQUE: AP, lateral, and oblique views of the left foot. FINDINGS: No acute cortical disruption or malalignment. No metallic or radiopaque foreign body. No subcutaneous emphysema. No lytic or blastic lesions. A well-corticated calcification lateral to the lateral calcaneus. XR/XR foot LT min 3V IMPRESSION: No acute fracture or dislocation. Electronically signed by: Pako Martinez MD 09/03/2024 02:34 PM [facility]
== END 2024-09-03 12:48 | disposition home or self-care (01) ==
LOC: HO.HMGCX 12:47
PROVIDERS: PCP Internal Medicine; Visit Provider Nurse Practitioner Family
DX: S99.922A Unspecified injury of left foot, initial encounter (principal); L73.2 Hidradenitis suppurativa; Z79.899 Other long term (current) drug therapy
CPT/HCPCS: 73630; 99212

== ENCOUNTER → 2024-09-03 14:15 | Outpatient (BNV) | payer OTHER, SELFPAY | PROVIDERS: PCP Internal Medicine; Visit Provider Radiology Diagnostic Radiology | DX: S99.922A Unspecified injury of left foot, initial encounter (principal) | CPT/HCPCS: 73630 ==

== ENCOUNTER 2024-09-11 11:02 | Outpatient (AMB) | payer OTHER, SELFPAY ==
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
== END 2024-09-11 12:08 | disposition home or self-care (01) ==
LOC: HO.HWS 11:02
PROVIDERS: PCP Internal Medicine; Visit Provider Advanced Practice Midwife
DX: N93.9 Abnormal uterine and vaginal bleeding, unspecified (principal); Z71.2 Person consulting for explanation of examination or test findings
CPT/HCPCS: 58100

== ENCOUNTER 2024-09-11 11:02 | Outpatient (REF) | payer OTHER, SELFPAY | END 2024-09-11 11:03 | disposition home or self-care (01) | LOC: HO.LNP 11:02 | PROVIDERS: PCP Internal Medicine; Visit Provider Advanced Practice Midwife | DX: N93.9 Abnormal uterine and vaginal bleeding, unspecified (principal) | CPT/HCPCS: 58100; 87626; 88175; 88305 ==

== ENCOUNTER 2024-09-25 13:02 | Outpatient (AMB) | payer OTHER, SELFPAY ==
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
== END 2024-09-25 13:51 | disposition home or self-care (01) ==
LOC: HO.HWS 13:02
PROVIDERS: PCP Internal Medicine; Visit Provider Advanced Practice Midwife
DX: N93.9 Abnormal uterine and vaginal bleeding, unspecified (principal); Z71.2 Person consulting for explanation of examination or test findings
CPT/HCPCS: 99213

== ENCOUNTER → 2024-09-25 13:02 | Outpatient (BNVA) | payer OTHER, SELFPAY | PROVIDERS: PCP Internal Medicine; Visit Provider Advanced Practice Midwife | DX: Z71.2 Person consulting for explanation of examination or test findings (principal); N93.9 Abnormal uterine and vaginal bleeding, unspecified | CPT/HCPCS: 99212 ==

== ENCOUNTER 2024-09-27 12:37 | Outpatient (REF) | payer OTHER, SELFPAY ==
[2024-09-28 13:12] LABS: CT PCR NOT DETECTED (Not Detect.); NG PCR NOT DETECTED (Not Detect.)
== END 2024-09-27 12:38 | disposition home or self-care (01) ==
LOC: HO.LNP 12:37
PROVIDERS: PCP Internal Medicine; Visit Provider Advanced Practice Midwife
DX: Z30.430 Encounter for insertion of intrauterine contraceptive device (principal); Z20.2 Contact with and (suspected) exposure to infections with a predominantly sexual mode of transmission
CPT/HCPCS: 58300; 81025; 87491; 87591; J7298

== ENCOUNTER 2024-09-27 12:37 | Outpatient (AMB) | payer OTHER, SELFPAY ==
[2024-09-27 12:59] VITALS: BP 146/80; BMI 41.4
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
== END 2024-09-27 13:19 | disposition home or self-care (01) ==
PROVIDERS: PCP Internal Medicine; Visit Provider Advanced Practice Midwife
DX: Z32.02 Encounter for pregnancy test, result negative (principal); Z30.430 Encounter for insertion of intrauterine contraceptive device
CPT/HCPCS: 58300

== ENCOUNTER 2024-10-10 14:22 | Outpatient (AMB) | payer OTHER, SELFPAY ==
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
[2024-10-10 14:25] VITALS: BP 150/96
== END 2024-10-10 15:20 | disposition home or self-care (01) ==
LOC: HO.HWS 14:22
PROVIDERS: PCP Internal Medicine; Visit Provider Advanced Practice Midwife
DX: Z30.431 Encounter for routine checking of intrauterine contraceptive device (principal); N92.4 Excessive bleeding in the premenopausal period; N93.9 Abnormal uterine and vaginal bleeding, unspecified
CPT/HCPCS: 99213

== ENCOUNTER 2024-10-10 15:16 | Outpatient (REF) | payer OTHER, SELFPAY ==
--- NOTE | ~2024-10-10 | US_ITS ---
EXAMINATION: US PELVIS TRANSABDOMINAL AND TRANSVAGINAL HISTORY: N92.4 - Excessive bleeding in the premenopausal period COMPARISON: Comparison is made with the prior examination dated 08/07/2024. TECHNIQUE: Transabdominal and endovaginal real-time 2D kwon-scale ultrasound was performed. FINDINGS: Uterus: The uterus is normal in size, measuring 8.8 x 4.5 x 4.8 cm. Myometrium has a normal echotexture. No fibroids are identified. Endometrium: The endometrial stripe is not visualized due to the presence of an IUD. The IUD appears in expected position. There are nabothian cysts in the cervix. Right ovary: The right ovary measures 4.0 x 2.1 x 2.8 cm. The right ovary is normal in size and echotexture. Left ovary: The left ovary is surgically absent. Pelvic fluid: none. US/US pelvic and transvaginal IMPRESSION: The endometrial stripe is not visualized due to the presence of an IUD which appears in appropriate position. Electronically signed by: Tanner Espinoza MD 10/11/2024 08:00 AM EDT
== END 2024-10-10 15:17 | disposition home or self-care (01) ==
LOC: HO.US 15:16
PROVIDERS: Visit Provider Advanced Practice Midwife
DX: Z30.431 Encounter for routine checking of intrauterine contraceptive device (principal); N92.4 Excessive bleeding in the premenopausal period
CPT/HCPCS: 76830; 76856; 81025; 99212

== ENCOUNTER → 2024-10-10 15:42 | Outpatient (BNV) | payer OTHER, SELFPAY | PROVIDERS: Visit Provider Radiology Diagnostic Radiology | DX: Z97.5 Presence of (intrauterine) contraceptive device (principal); N88.8 Other specified noninflammatory disorders of cervix uteri | CPT/HCPCS: 76830; 76856 ==

== ENCOUNTER 2024-11-15 12:45 | Outpatient (AMB) | payer OTHER, SELFPAY ==
[2024-11-15 12:53] VITALS: BP 130/80; PULSE 98; O2SAT 97; BMI 39.9
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
== END 2024-11-15 13:34 | disposition home or self-care (01) ==
LOC: HO.HSMS 12:46
PROVIDERS: PCP Internal Medicine; Visit Provider Physician Assistant Medical
DX: R20.8 Other disturbances of skin sensation (principal); M54.17 Radiculopathy, lumbosacral region; G47.33 Obstructive sleep apnea (adult) (pediatric); Z99.89 Dependence on other enabling machines and devices; R53.83 Other fatigue; G47.9 Sleep disorder, unspecified; E66.09 Other obesity due to excess calories; Z68.39 Body mass index [BMI] 39.0-39.9, adult
CPT/HCPCS: 99214; G2211

== ENCOUNTER → 2024-11-15 12:45 | Outpatient (BNVA) | payer OTHER, SELFPAY | PROVIDERS: PCP Internal Medicine; Visit Provider Physician Assistant Medical | DX: R20.8 Other disturbances of skin sensation (principal); M54.17 Radiculopathy, lumbosacral region; R53.83 Other fatigue; G47.33 Obstructive sleep apnea (adult) (pediatric); E66.09 Other obesity due to excess calories; G47.9 Sleep disorder, unspecified; Z99.89 Dependence on other enabling machines and devices; Z68.39 Body mass index [BMI] 39.0-39.9, adult | CPT/HCPCS: 99212 ==

== ENCOUNTER 2024-12-21 16:14 | Outpatient (REF) | payer OTHER, SELFPAY ==
--- NOTE | ~2024-12-21 | MR_ITS ---
CLINICAL HISTORY: M54.17 - Radiculopathy, lumbosacral region MR lumbar spine without gadolinium Comparison: None Findings: No scoliosis or spondylolisthesis. No acute fracture or pathologic bone lesion. Cauda equina and conus medullaris within normal limits. T12-L1: Degenerated disc with disc desiccation with small to moderate central disc protrusion/extrusion deforming the anterior dural sac. There is no foraminal narrowing. L1-L2: Degenerating disc with desiccation and loss of height associated with relatively large left paracentral to subarticular disc protrusion deforming the right anterior aspect of the dural sac. There is no neural foraminal narrowing. L2-L3: Mild annular bulge deforms the dural sac. No neural foraminal narrowing. L3-L4: Minimal annular bulge. No neural foraminal narrowing. L4-L5: Disc desiccation with mild loss of height. Mild annular bulge deforms the dural sac and encroaches upon the right neural foramen. The disc makes contact with the exiting nerve root on the right. Paraspinous musculature intact. There is a left renal cyst noted. There are benign circumscribed bony lesions at L1 through L5 bright on both T1 and T2 weighted sequences likely representing small hemangiomata. L5-S1: Unremarkable. IMPRESSION: 1. L4-L5: Disc desiccation with mild loss of height. Mild annular bulge deforms the dural sac and encroaches upon the right neural foramen. The disc makes contact with the exiting nerve root on the right. 2. L1-L2: Degenerating disc with desiccation and loss of height associated with relatively large left paracentral to subarticular disc protrusion deforming the right anterior aspect of the dural sac. There is no neural foraminal narrowing. 3. L2-L3: Mild annular bulge deforms the dural sac. No neural foraminal narrowing. 4. L3-L4: Minimal annular bulge. No neural foraminal narrowing. 5. T12-L1: Degenerated disc with disc desiccation with small to moderate central disc protrusion/extrusion deforming the anterior dural sac. There is no foraminal narrowing. 6. Multilevel small hemangiomata. This document has been electronically signed by: Crispin Rivera MD on 12/25/2024 08:57:40
== END 2024-12-21 16:15 | disposition home or self-care (01) ==
LOC: HO.MRI 16:14
PROVIDERS: PCP Internal Medicine; Visit Provider Psychiatry & Neurology Neurology
DX: M54.17 Radiculopathy, lumbosacral region (principal)
CPT/HCPCS: 72148

== ENCOUNTER → 2024-12-21 16:19 | Outpatient (BNV) | payer OTHER, SELFPAY | PROVIDERS: PCP Internal Medicine; Visit Provider Radiology Diagnostic Radiology | DX: D18.00 Hemangioma unspecified site (principal); M51.369 Other intervertebral disc degeneration, lumbar region without mention of lumbar back pain or lower extremity pain | CPT/HCPCS: 72148 ==

== ENCOUNTER 2025-01-10 13:28 | Outpatient (AMB) | payer OTHER, SELFPAY ==
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
[2025-01-10 13:48] VITALS: BP 180/86; PULSE 99; BMI 40.0
== END 2025-01-10 15:02 | disposition home or self-care (01) ==
LOC: HO.PMC 13:28
PROVIDERS: PCP Internal Medicine; Referring Provider Physician Assistant Medical; Visit Provider Nurse Practitioner Family
DX: M79.671 Pain in right foot (principal); M79.672 Pain in left foot; R20.8 Other disturbances of skin sensation; M43.16 Spondylolisthesis, lumbar region; E66.01 Morbid (severe) obesity due to excess calories; Z68.41 Body mass index [BMI] 40.0-44.9, adult; M47.817 Spondylosis without myelopathy or radiculopathy, lumbosacral region; M53.3 Sacrococcygeal disorders, not elsewhere classified; M51.369 Other intervertebral disc degeneration, lumbar region without mention of lumbar back pain or lower extremity pain; M54.17 Radiculopathy, lumbosacral region
CPT/HCPCS: 99204

== ENCOUNTER → 2025-01-10 13:28 | Outpatient (BNVA) | payer OTHER, SELFPAY | PROVIDERS: PCP Internal Medicine; Referring Provider Physician Assistant Medical; Visit Provider Nurse Practitioner Family | DX: M43.16 Spondylolisthesis, lumbar region (principal); M54.17 Radiculopathy, lumbosacral region; M51.369 Other intervertebral disc degeneration, lumbar region without mention of lumbar back pain or lower extremity pain; M53.3 Sacrococcygeal disorders, not elsewhere classified; M47.817 Spondylosis without myelopathy or radiculopathy, lumbosacral region; R20.8 Other disturbances of skin sensation; M79.671 Pain in right foot; M79.672 Pain in left foot; E66.01 Morbid (severe) obesity due to excess calories; Z68.41 Body mass index [BMI] 40.0-44.9, adult | CPT/HCPCS: 99202 ==

== ENCOUNTER 2025-01-18 08:46 | Outpatient (AMB) | payer OTHER, SELFPAY ==
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
== END 2025-01-18 10:22 | disposition home or self-care (01) ==
PROVIDERS: PCP Internal Medicine; Visit Provider Physician Assistant Medical
DX: G57.93 Unspecified mononeuropathy of bilateral lower limbs (principal); M54.17 Radiculopathy, lumbosacral region; R20.8 Other disturbances of skin sensation; R53.83 Other fatigue; G47.9 Sleep disorder, unspecified; R56.9 Unspecified convulsions
CPT/HCPCS: 99214

== ENCOUNTER → 2025-01-18 08:46 | Outpatient (BNVA) | payer OTHER, SELFPAY | PROVIDERS: PCP Internal Medicine; Visit Provider Physician Assistant Medical | DX: R42 Dizziness and giddiness (principal); R73.9 Hyperglycemia, unspecified; I10 Essential (primary) hypertension; M54.17 Radiculopathy, lumbosacral region; R20.8 Other disturbances of skin sensation; R53.83 Other fatigue; G47.9 Sleep disorder, unspecified; R56.9 Unspecified convulsions | CPT/HCPCS: 82948; 83036; 99212 ==

== ENCOUNTER 2025-01-18 13:00 | Outpatient (AMB) | payer OTHER, SELFPAY ==
[2025-01-18 13:12] VITALS: BP 172/90; PULSE 107; TEMP 36.8; O2SAT 98; BMI 40.8
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
== END 2025-01-18 14:26 | disposition home or self-care (01) ==
PROVIDERS: PCP Internal Medicine; Visit Provider Physician Assistant
DX: R73.9 Hyperglycemia, unspecified (principal); I10 Essential (primary) hypertension; Z13.9 Encounter for screening, unspecified

== ENCOUNTER 2025-01-21 12:37 | Outpatient (REF) | payer OTHER, SELFPAY ==
[2025-01-21 16:18] LABS: Estimated Average Glucose 183 mg/dL
[2025-01-21 16:30] LABS: Alanine Aminotransferase 19 U/L (0-31); Anion Gap 13 (12-20); Aspartate Amino Transferase 29 U/L (5-31); Blood Urea Nitrogen 10 mg/dL (9-16); Calcium 9.4 mg/dL (8.4-10.2); Carbon Dioxide 25 mmol/L (22-29); Chloride 103 mmol/L (96-108); Cholesterol 180 mg/dL (<200); Estimated Glomerular Filt Rate > 60; Glucose Fasting 130 mg/dL (60-99); HDL Cholesterol 37 mg/dL (>40); LDL Cholesterol Calculated 84 mg/dL (<100); Potassium 4.3 mmol/L (3.3-5.1); Sodium 137 mmol/L (135-145); Triglycerides 295 mg/dL (<150)
[2025-01-21 16:47] LABS: Thyroid Stimulating Hormone 2.11 uIU/mL (0.32-4.0); Vitamin D 25-OH Total 53.9 ng/mL (>30)
[2025-01-21 16:47] LABS: Creatinine Urine 175.85 mg/dL; Microalbum/Creatinine Ratio Ur 34.6 ug/mg cr (<30)
== END 2025-01-21 12:38 | disposition home or self-care (01) ==
LOC: HO.HMGCLDS 12:37
PROVIDERS: PCP Internal Medicine; Visit Provider Internal Medicine
DX: E11.42 Type 2 diabetes mellitus with diabetic polyneuropathy (principal); E11.9 Type 2 diabetes mellitus without complications; E66.09 Other obesity due to excess calories; Z68.39 Body mass index [BMI] 39.0-39.9, adult; N93.9 Abnormal uterine and vaginal bleeding, unspecified
CPT/HCPCS: 36415; 80048; 80061; 82043; 82306; 82570; 83036; 84443; 84450; 84460

== ENCOUNTER 2025-01-22 08:15 | Outpatient (AMB) | payer OTHER, SELFPAY ==
[2025-01-22 08:51] VITALS: BP 134/78; PULSE 92; RESP 15; TEMP 36.9; O2SAT 97; BMI 40.7
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
== END 2025-01-22 09:42 | disposition home or self-care (01) ==
LOC: HO.HMCC 08:15
PROVIDERS: PCP Internal Medicine; Visit Provider Internal Medicine
DX: E11.9 Type 2 diabetes mellitus without complications (principal)

== ENCOUNTER → 2025-01-22 08:15 | Outpatient (BNVA) | payer OTHER, SELFPAY | PROVIDERS: PCP Internal Medicine; Visit Provider Internal Medicine | DX: E11.9 Type 2 diabetes mellitus without complications (principal); R07.89 Other chest pain; R00.2 Palpitations | CPT/HCPCS: 83036; 96127; 99212 ==

== ENCOUNTER 2025-02-05 13:25 | Outpatient (REF) | payer OTHER, SELFPAY ==
[2025-02-05 14:51] LABS: Ferritin 69 ng/mL (10-250)
[2025-02-05 15:03] LABS: Folate 10.1 ng/mL (> or = 4.0); Vitamin B12 424 pg/mL (200-900)
[2025-02-05 15:11] LABS: Hematocrit 37.9 % (37.0-47.0); Hemoglobin 13.1 g/dl (12.0-16.0)
== END 2025-02-05 13:26 | disposition home or self-care (01) ==
LOC: HO.LAB 13:25
PROVIDERS: Advanced Practice Midwife; PCP Internal Medicine; Visit Provider Physician Assistant Medical
DX: N92.4 Excessive bleeding in the premenopausal period (principal); R53.83 Other fatigue; G47.9 Sleep disorder, unspecified; N93.9 Abnormal uterine and vaginal bleeding, unspecified; R87.610 Atypical squamous cells of undetermined significance on cytologic smear of cervix (ASC-US); Z30.431 Encounter for routine checking of intrauterine contraceptive device
CPT/HCPCS: 36415; 82306; 82607; 82728; 82746; 83090; 83921; 84443; 85014; 85018; 99212

== ENCOUNTER 2025-02-05 13:41 | Outpatient (AMB) | payer OTHER, SELFPAY ==
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
[2025-02-05 13:56] VITALS: BP 144/80
== END 2025-02-05 14:18 | disposition home or self-care (01) ==
LOC: HO.HWS 13:42
PROVIDERS: PCP Internal Medicine; Visit Provider Advanced Practice Midwife
DX: N93.9 Abnormal uterine and vaginal bleeding, unspecified (principal); Z30.431 Encounter for routine checking of intrauterine contraceptive device
CPT/HCPCS: 99213

== ENCOUNTER 2025-02-05 14:37 | Outpatient (REF) | payer OTHER, SELFPAY | END 2025-02-05 14:38 | disposition home or self-care (01) | LOC: HO.LNP 14:37 | PROVIDERS: Visit Provider Advanced Practice Midwife | DX: N92.4 Excessive bleeding in the premenopausal period (principal); R87.615 Unsatisfactory cytologic smear of cervix; E11.9 Type 2 diabetes mellitus without complications; R53.83 Other fatigue; G47.9 Sleep disorder, unspecified | CPT/HCPCS: 87626; 88175 ==

== ENCOUNTER 2025-02-16 19:02 | Emergency (ER) | payer OTHER, SELFPAY ==
--- NOTE | ~2025-02-16 | XR_ITS ---
CLINICAL HISTORY: chest pain 2 view chest x-ray Comparison: None provided Findings: The lungs are clear. Normal size heart. No acute fracture. IMPRESSION: 1. No acute cardiopulmonary abnormality identified. This document has been electronically signed by: Benita Gonzales MD on 02/17/2025 01:35:14
--- NOTE | 2025-02-16 19:03 | ECG_ITS ---
Test Reason : cp Blood Pressure : */* mmHG Vent. Rate : 125 BPM Atrial Rate : 125 BPM P-R Int : 140 ms QRS Dur : 74 ms QT Int : 304 ms P-R-T Axes : 49 1 30 degrees QTcB Int : 438 ms Sinus tachycardia Minimal voltage criteria for LVH, may be normal variant ( R in aVL ) Borderline ECG No previous ECGs available Referred By: Stefany Rubio Electronically Signed By: Chaparro Mendez
[2025-02-16 19:07] VITALS: BP 153/94; PULSE 122; RESP 20; TEMP 36.6; O2SAT 97; BMI 39.0
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
[2025-02-16 19:35] LABS: MANUAL DIFF FLAG NO
[2025-02-16 19:37] LABS: Hematocrit 39.2 % (37.0-47.0); Hemoglobin 13.6 g/dl (12.0-16.0); Imm Gran Abs Auto 0.04 X10*3/uL (0.00-0.03); Imm Gran Pct Auto 0.3 % (0.0-0.4); Lymphocytes Absolute Auto 3.1 X10*3/uL (1.2-4.9); Mean Corpuscular HGB Conc 34.7 g/dl (31.0-35.0); Mean Corpuscular Hemoglobin 29.4 pg (27.0-33.0); Mean Corpuscular Volume 84.8 fL (80.0-98.0); NRBC Abs Auto 0.000 X10*3/uL (0.0-0.012); NRBC Pct Auto 0.0 /100WBC (0.0-0.2); Platelet Count 321 X10*3/uL (160-400); Red Blood Count 4.62 X10*6/uL (4.20-5.50); White Blood Count 12.0 X10*3/uL (4.8-10.8)
[2025-02-16 19:57] LABS: Alanine Aminotransferase 22 U/L (0-31); Albumin Level 4.3 g/dL (3.5-5.0); Alkaline Phosphatase 91 U/L (39-117); Anion Gap 17 (12-20); Aspartate Amino Transferase 25 U/L (5-31); Blood Urea Nitrogen 19 mg/dL (9-16); Calcium 9.4 mg/dL (8.4-10.2); Carbon Dioxide 22 mmol/L (22-29); Chloride 101 mmol/L (96-108); Creatinine Clr Calc Pharmacy 130.1; Estimated Glomerular Filt Rate > 60; Magnesium 2.0 mg/dL (1.6-2.6); Potassium 4.3 mmol/L (3.3-5.1); Sodium 136 mmol/L (135-145); Total Protein 8.0 g/dL (6.5-8.0)
[2025-02-16 19:59] VITALS: BP 152/84; PULSE 108; RESP 12; TEMP 37.3; O2SAT 97
[2025-02-16 20:03] LABS: Troponin-I High Sensitivity < 2.7 ng/L (<3.5-17.0)
[2025-02-16 21:35] LABS: Troponin-I High Sensitivity < 2.7 ng/L (<3.5-17.0)
[2025-02-16 23:18] VITALS: BP 141/80; PULSE 92; RESP 17; TEMP 37; O2SAT 98
[2025-02-16 23:38] LABS: D Dimer High Sensitivity 185 NG/ML
[2025-02-17 02:07] VITALS: BP 139/80; PULSE 92; RESP 15; TEMP 36.9; O2SAT 96
[2025-02-17 02:09] VITALS: BP 139/80; PULSE 92; RESP 15; TEMP 36.9; O2SAT 96
== END 2025-02-17 02:09 | disposition home or self-care (01) ==
PROVIDERS: Physician Assistant Medical; Emergency Provider Emergency Medicine; PCP Internal Medicine
DX: R07.89 Other chest pain (principal); I47.19 Other supraventricular tachycardia; R06.02 Shortness of breath; E11.9 Type 2 diabetes mellitus without complications; I10 Essential (primary) hypertension; Z79.84 Long term (current) use of oral hypoglycemic drugs; Z79.899 Other long term (current) drug therapy
CPT/HCPCS: 36415; 71046; 80053; 83735; 84484; 85025; 85379; 93005; 99283; 99285

== ENCOUNTER → 2025-02-16 19:03 | Outpatient (BNV) | payer OTHER, SELFPAY | PROVIDERS: Emergency Provider Emergency Medicine; PCP Internal Medicine; Visit Provider Internal Medicine Cardiovascular Disease | DX: R00.0 Tachycardia, unspecified (principal) | CPT/HCPCS: 93010 ==

== ENCOUNTER → 2025-02-16 23:51 | Outpatient (BNV) | payer OTHER, SELFPAY | PROVIDERS: Emergency Provider Emergency Medicine; PCP Internal Medicine; Visit Provider Radiology Diagnostic Radiology | DX: I10 Essential (primary) hypertension (principal) | CPT/HCPCS: 71046 ==

== ENCOUNTER 2025-02-18 07:52 | Outpatient (AMB) | payer OTHER, SELFPAY ==
[2025-02-18 08:05] VITALS: BP 144/92; PULSE 94; O2SAT 97; BMI 39.0
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
== END 2025-02-18 08:45 | disposition home or self-care (01) ==
LOC: HO.HSMS 07:53
PROVIDERS: PCP Internal Medicine; Visit Provider Physician Assistant Medical
DX: R53.83 Other fatigue (principal); G47.9 Sleep disorder, unspecified; G57.93 Unspecified mononeuropathy of bilateral lower limbs; M54.17 Radiculopathy, lumbosacral region; R20.8 Other disturbances of skin sensation; R56.9 Unspecified convulsions
CPT/HCPCS: 99214

== ENCOUNTER → 2025-02-18 07:52 | Outpatient (BNVA) | payer OTHER, SELFPAY | PROVIDERS: PCP Internal Medicine; Visit Provider Physician Assistant Medical | DX: G25.81 Restless legs syndrome (principal); R20.8 Other disturbances of skin sensation; G47.33 Obstructive sleep apnea (adult) (pediatric); Z99.89 Dependence on other enabling machines and devices; R53.83 Other fatigue; G47.9 Sleep disorder, unspecified | CPT/HCPCS: 99212 ==

== ENCOUNTER 2025-02-26 09:14 | Outpatient (AMB) | payer OTHER, SELFPAY ==
[2025-02-26 09:18] VITALS: BP 142/84; PULSE 102; O2SAT 97; BMI 38.7
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
== END 2025-02-26 09:34 | disposition home or self-care (01) ==
LOC: HO.HMCC 09:15
PROVIDERS: PCP Internal Medicine; Visit Provider Internal Medicine
DX: E11.9 Type 2 diabetes mellitus without complications (principal); R03.0 Elevated blood-pressure reading, without diagnosis of hypertension; E66.01 Morbid (severe) obesity due to excess calories; Z68.38 Body mass index [BMI] 38.0-38.9, adult; G57.93 Unspecified mononeuropathy of bilateral lower limbs; F41.8 Other specified anxiety disorders; E66.812 Obesity, class 2

== ENCOUNTER → 2025-02-26 09:14 | Outpatient (BNVA) | payer OTHER, SELFPAY | PROVIDERS: PCP Internal Medicine; Visit Provider Internal Medicine | DX: E11.9 Type 2 diabetes mellitus without complications (principal); R03.0 Elevated blood-pressure reading, without diagnosis of hypertension; G57.93 Unspecified mononeuropathy of bilateral lower limbs; F41.8 Other specified anxiety disorders; E66.09 Other obesity due to excess calories; E66.812 Obesity, class 2; Z68.38 Body mass index [BMI] 38.0-38.9, adult | CPT/HCPCS: 96127; 99212 ==

== ENCOUNTER 2025-03-07 07:41 | Outpatient (REF) | payer OTHER, SELFPAY ==
--- NOTE | 2025-03-07 07:45 | EEG_ITS ---
This is a 16 channel EEG with an EKG lead. Patient is reported awake during the tracing. Background EEG rhythm is about 10 hertz 5-20 microvolt posteriorly and lower amplitude fast anteriorly. Photic stimulation does not produce any significant driving. Hyperventilation is not performed. Cardiac lead does not reveal any significant abnormality. No sharp wave spikes or paroxysmal tendency noted. Impression: Unremarkable EEG. MTDD
== END 2025-03-07 07:42 | disposition home or self-care (01) ==
LOC: HO.NEURO 07:41
PROVIDERS: PCP Internal Medicine; Visit Provider Physician Assistant Medical
DX: R56.9 Unspecified convulsions (principal)
CPT/HCPCS: 95816

== ENCOUNTER → 2025-03-07 07:45 | Outpatient (BNV) | payer OTHER, SELFPAY | PROVIDERS: PCP Internal Medicine; Visit Provider Psychiatry & Neurology Neurology | DX: R56.9 Unspecified convulsions (principal) | CPT/HCPCS: 95816 ==

== ENCOUNTER 2025-03-20 10:34 | Outpatient (REF) | payer OTHER, SELFPAY ==
--- NOTE | ~2025-03-20 | US_ITS ---
CLINICAL HISTORY: N93.9 - Abnormal uterine and vaginal bleeding, unspecified Transabdominal and transvaginal pelvic ultrasound Comparison: 10/10/2024 Findings: Uterus 9.3 x 4.1 x 4.5 cm. Endometrium 8 mm. No significant free fluid. IUD in good position. Right ovary 7.3 x 4.4 x 4.3 cm. 4.4 x 3.2 cm cyst. Left ovary is not identified. Impression: Four point 4 x 3.2 cm right ovarian cyst This document has been electronically signed by: Angel Luis Edouard MD on 03/20/2025 23:32:52
== END 2025-03-20 10:35 | disposition home or self-care (01) ==
LOC: HO.US 10:34
PROVIDERS: PCP Internal Medicine; Visit Provider Advanced Practice Midwife
DX: N93.9 Abnormal uterine and vaginal bleeding, unspecified (principal); Z30.431 Encounter for routine checking of intrauterine contraceptive device
CPT/HCPCS: 76830; 76856

== ENCOUNTER → 2025-03-20 10:36 | Outpatient (BNV) | payer OTHER, SELFPAY | PROVIDERS: PCP Internal Medicine; Visit Provider Radiology Diagnostic Radiology | DX: N83.201 Unspecified ovarian cyst, right side (principal) | CPT/HCPCS: 76830; 76856 ==

== ENCOUNTER 2025-03-26 12:50 | Outpatient (AMB) | payer OTHER, SELFPAY ==
[2025-03-26 12:57] VITALS: BP 114/86; PULSE 100; TEMP 36.9; O2SAT 98; BMI 37.8
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
== END 2025-03-26 13:36 | disposition home or self-care (01) ==
LOC: HO.HMCC 12:51
PROVIDERS: PCP Internal Medicine; Visit Provider Internal Medicine
DX: I10 Essential (primary) hypertension (principal)

== ENCOUNTER → 2025-03-26 12:50 | Outpatient (BNVA) | payer OTHER, SELFPAY | PROVIDERS: PCP Internal Medicine; Visit Provider Internal Medicine | DX: I10 Essential (primary) hypertension (principal); Z79.899 Other long term (current) drug therapy | CPT/HCPCS: 99212 ==

== ENCOUNTER 2025-03-28 15:01 | Outpatient (AMB) | payer OTHER, SELFPAY ==
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
== END 2025-03-28 15:52 | disposition home or self-care (01) ==
LOC: HO.HSMS 15:02
PROVIDERS: PCP Internal Medicine; Visit Provider Physician Assistant Medical
DX: R53.83 Other fatigue (principal); G47.9 Sleep disorder, unspecified; G57.93 Unspecified mononeuropathy of bilateral lower limbs; M54.17 Radiculopathy, lumbosacral region; R20.8 Other disturbances of skin sensation; R56.9 Unspecified convulsions; M51.16 Intervertebral disc disorders with radiculopathy, lumbar region
CPT/HCPCS: 99214

== ENCOUNTER 2025-04-10 13:05 | Outpatient (AMB) | payer OTHER, SELFPAY ==
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
== END 2025-04-10 13:36 | disposition home or self-care (01) ==
LOC: HO.HWS 13:05
PROVIDERS: PCP Internal Medicine; Visit Provider Advanced Practice Midwife
DX: N93.9 Abnormal uterine and vaginal bleeding, unspecified (principal); Z30.431 Encounter for routine checking of intrauterine contraceptive device; N83.201 Unspecified ovarian cyst, right side
CPT/HCPCS: 99213

== ENCOUNTER → 2025-04-10 13:05 | Outpatient (BNVA) | payer OTHER, SELFPAY | PROVIDERS: PCP Internal Medicine; Visit Provider Advanced Practice Midwife | DX: Z30.431 Encounter for routine checking of intrauterine contraceptive device (principal); N83.201 Unspecified ovarian cyst, right side; N93.9 Abnormal uterine and vaginal bleeding, unspecified | CPT/HCPCS: 99212 ==

== ENCOUNTER 2025-05-06 06:36 | Outpatient (REF) | payer OTHER, SELFPAY ==
[2025-05-06 07:47] LABS: Anion Gap 14 (12-20); Blood Urea Nitrogen 16 mg/dL (9-16); Calcium 9.0 mg/dL (8.4-10.2); Carbon Dioxide 23 mmol/L (22-29); Chloride 104 mmol/L (96-108); Estimated Glomerular Filt Rate > 60; Potassium 4.4 mmol/L (3.3-5.1); Sodium 137 mmol/L (135-145)
[2025-05-06 08:12] LABS: Microalbum/Creatinine Ratio Ur 19.5 ug/mg cr (<30)
== END 2025-05-06 06:37 | disposition home or self-care (01) ==
LOC: HO.LAB 06:36
PROVIDERS: PCP Internal Medicine; Visit Provider Internal Medicine
DX: E11.9 Type 2 diabetes mellitus without complications (principal)
CPT/HCPCS: 36415; 80048; 82043; 82570; 83036

== ENCOUNTER 2025-05-08 14:54 | Outpatient (AMB) | payer OTHER, SELFPAY ==
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
[2025-05-08 15:06] VITALS: BP 118/78; PULSE 97; O2SAT 100; BMI 39.1
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
[2025-05-08 15:19] LABS: Glucose, Whole Blood 324 mg/dL (60-115)
== END 2025-05-08 15:39 | disposition home or self-care (01) ==
LOC: HO.ENCR 14:55
PROVIDERS: PCP Internal Medicine; Visit Provider Internal Medicine
DX: E11.9 Type 2 diabetes mellitus without complications (principal)

== ENCOUNTER → 2025-05-08 14:54 | Outpatient (BNVA) | payer OTHER, SELFPAY | PROVIDERS: PCP Internal Medicine; Visit Provider Internal Medicine | DX: E11.9 Type 2 diabetes mellitus without complications (principal); Z79.84 Long term (current) use of oral hypoglycemic drugs | CPT/HCPCS: 82947; 99212 ==

== ENCOUNTER 2025-05-21 08:59 | Outpatient (AMB) | payer OTHER, SELFPAY ==
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
[2025-05-21 09:26] VITALS: BMI 39.0
== END 2025-05-21 11:20 | disposition home or self-care (01) ==
LOC: HO.HWS 09:00
PROVIDERS: PCP Internal Medicine; Visit Provider Obstetrics & Gynecology
DX: Z30.432 Encounter for removal of intrauterine contraceptive device (principal); R87.610 Atypical squamous cells of undetermined significance on cytologic smear of cervix (ASC-US); N93.9 Abnormal uterine and vaginal bleeding, unspecified; N83.201 Unspecified ovarian cyst, right side; Z32.02 Encounter for pregnancy test, result negative
CPT/HCPCS: 58301; 99213

== ENCOUNTER → 2025-05-21 08:59 | Outpatient (BNVA) | payer OTHER, SELFPAY | PROVIDERS: PCP Internal Medicine; Visit Provider Obstetrics & Gynecology | DX: Z30.432 Encounter for removal of intrauterine contraceptive device (principal); N93.9 Abnormal uterine and vaginal bleeding, unspecified; N83.201 Unspecified ovarian cyst, right side | CPT/HCPCS: 58301; 81025; 99212 ==

== ENCOUNTER 2025-05-29 13:25 | Outpatient (AMB) | payer OTHER, SELFPAY ==
[2025-05-29 13:51] VITALS: BP 130/78; PULSE 86; BMI 38.4
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
== END 2025-05-29 14:14 | disposition home or self-care (01) ==
LOC: HO.HCS 13:26
PROVIDERS: PCP Internal Medicine; Visit Provider Internal Medicine
DX: R00.0 Tachycardia, unspecified (principal); E66.09 Other obesity due to excess calories; Z68.39 Body mass index [BMI] 39.0-39.9, adult; E11.9 Type 2 diabetes mellitus without complications; I10 Essential (primary) hypertension
CPT/HCPCS: 99204

== ENCOUNTER → 2025-05-29 13:25 | Outpatient (BNVA) | payer OTHER, SELFPAY | PROVIDERS: PCP Internal Medicine; Visit Provider Internal Medicine | DX: I10 Essential (primary) hypertension (principal); E11.9 Type 2 diabetes mellitus without complications; E66.09 Other obesity due to excess calories; Z68.39 Body mass index [BMI] 39.0-39.9, adult; R00.0 Tachycardia, unspecified | CPT/HCPCS: 99202 ==

== ENCOUNTER 2025-06-04 13:03 | Outpatient (AMB) | payer OTHER, SELFPAY ==
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
[2025-06-04 13:41] VITALS: BP 122/72; PULSE 90; TEMP 37.1; O2SAT 99; BMI 38.2
== END 2025-06-04 14:17 | disposition home or self-care (01) ==
LOC: HO.HMCC 13:04
PROVIDERS: PCP Internal Medicine; Visit Provider Internal Medicine
DX: Z23 Encounter for immunization (principal)

== ENCOUNTER → 2025-06-04 13:03 | Outpatient (BNVA) | payer OTHER, SELFPAY | PROVIDERS: PCP Internal Medicine; Visit Provider Internal Medicine | DX: Z00.01 Encounter for general adult medical examination with abnormal findings (principal); Z23 Encounter for immunization; F41.8 Other specified anxiety disorders; I10 Essential (primary) hypertension; N93.9 Abnormal uterine and vaginal bleeding, unspecified; R20.8 Other disturbances of skin sensation; E66.01 Morbid (severe) obesity due to excess calories; Z68.38 Body mass index [BMI] 38.0-38.9, adult | CPT/HCPCS: 90471; 90656; 96127; 99396; 99497 ==

== ENCOUNTER 2025-06-06 15:04 | Outpatient (AMB) | payer OTHER, SELFPAY ==
[2025-06-06 15:21] VITALS: PULSE 98; O2SAT 97; BMI 37.8
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
[2025-06-06 15:33] LABS: Glucose, Whole Blood 132 mg/dL (60-115)
== END 2025-06-06 15:43 | disposition home or self-care (01) ==
LOC: HO.ENCR 15:04
PROVIDERS: PCP Internal Medicine; Visit Provider Internal Medicine
DX: E11.9 Type 2 diabetes mellitus without complications (principal)

== ENCOUNTER → 2025-06-06 15:04 | Outpatient (BNVA) | payer OTHER, SELFPAY | PROVIDERS: PCP Internal Medicine; Visit Provider Internal Medicine | DX: E11.40 Type 2 diabetes mellitus with diabetic neuropathy, unspecified (principal); Z79.4 Long term (current) use of insulin; Z79.84 Long term (current) use of oral hypoglycemic drugs | CPT/HCPCS: 82947; 99212 ==

== ENCOUNTER 2025-06-10 14:46 | Outpatient (AMB) | payer OTHER, SELFPAY ==
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
[2025-06-10 15:15] VITALS: BP 128/78; BMI 38.0
== END 2025-06-10 16:05 | disposition home or self-care (01) ==
LOC: HO.HSMS 14:47
PROVIDERS: PCP Internal Medicine; Visit Provider Physician Assistant Medical
DX: R53.83 Other fatigue (principal); G47.9 Sleep disorder, unspecified; G57.93 Unspecified mononeuropathy of bilateral lower limbs; M54.17 Radiculopathy, lumbosacral region; R20.8 Other disturbances of skin sensation; R56.9 Unspecified convulsions; M51.16 Intervertebral disc disorders with radiculopathy, lumbar region
CPT/HCPCS: 99214

== ENCOUNTER → 2025-06-10 14:46 | Outpatient (BNVA) | payer OTHER, SELFPAY | PROVIDERS: PCP Internal Medicine; Visit Provider Physician Assistant Medical | DX: R53.83 Other fatigue (principal); G47.9 Sleep disorder, unspecified; G57.93 Unspecified mononeuropathy of bilateral lower limbs; R20.8 Other disturbances of skin sensation; R56.9 Unspecified convulsions; M51.16 Intervertebral disc disorders with radiculopathy, lumbar region; Z79.899 Other long term (current) drug therapy | CPT/HCPCS: 99212 ==

== ENCOUNTER → 2025-07-05 07:33 | Outpatient (REF) | payer OTHER, SELFPAY ==
--- NOTE | 2025-07-05 07:35 | CA_ITS ---
Acquisition Time: 2025-07-05 09:04:17 Total Exercise Time: 00:05:30 Test Indications: cp Medications: see h&p Protocol: JUICE Max HR: 153 BPM 86% of Pred: 177 BPM Max BP: 200/70 mmHG Max Work Load: 7.0 METS Exercise stress test with exercise 5 mins 30 secs of Juice Protocol, achieving 865 MPHR, with reports of 5/10 mid chest tightness and SOB, without any arrythmias, with hypertensive response to exercise- max BP 200/70. Without any EKG changes meeting criteria for ischemia. In recovery, chest tightness quickly resolved and breathing improved to baseline. Will order stress echo for further eval of chets pain. Test reviewed with Dr. Liz. Referred By: Grzegorz Daniel Electronically Signed By: Alonzo Kramer
--- NOTE | 2025-07-05 07:35 | CA_ITS ---
Transthoracic Echocardiogram Patient (Last, First, Middle): Emmy Proctor E Gender: Female Date of : 1980 Age: 45 Procedure Date: 07/05/2025 Procedure Type: Transthoracic Echocardiogram Location: OP Height: 175.26 cm Weight: 116.58 kg BSA: 2.30 m2 Heart Rate: 75 bpm BP: 128 / 78 mmHg Learning And Development Director: SB Referring MD: Grzegorz Daniel MD Manager Medical: Francisco Liz MD Symptoms: R00.0 - Tachycardia, unspecified/[id number] Hypertension/Obesity/Sleep Ap Study Quality: Adequate ECG Rhythm: Sinus Conclusions: - 1. Normal LV ejection fraction of 65-70% 2. Normal cardiac valvular Dopplers 3. Normal RV systolic pressure 4. No gross pericardial effusion Findings Left Ventricle Normal left ventricular size, thickness, and systolic function. The visually estimated ejection fraction is between 65-70%. Spectral Doppler is indicative of a normal filling pattern. Right Ventricle Normal right ventricular cavity size and systolic function. Atria Both atria are normal in size. Interatrial shunt cannot be excluded. Aortic Valve The aortic valve structure and function is likely normal. There is no aortic valve stenosis. There is no aortic valve regurgitation. Mitral Valve Normal mitral valve structure and function. There is trace mitral valve regurgitation. There is no mitral valve stenosis. Pulmonic Valve The pulmonic valve is likely normal. Tricuspid Valve Normal tricuspid valve structure. There is trace tricuspid valve regurgitation. The right ventricular systolic pressure is normal. The right ventricular systolic pressure is 21 mmHg. Normal right atrial pressure. There is no evidence of pulmonary hypertension. Great Vessels All visible segments of the aorta are normal in size. The pulmonary artery was not well visualized. There is no dilatation of the ascending aorta measuring 3.30 cm. Venous The inferior vena cava is normal in size and collapses greater than 50% with inspiration. Pericardium/Pleural There is no evidence of pericardial effusion. Prior Study Comparison No prior study available for comparison. Measurements 2D Linear Measurements IVSd: 1.02 0.6-0.9/0.6-1.0 cm LVIDd: 5.15 3.9-5.3/4.2-5.9 cm LVIDd Index: 2.24 2.4-3.2/2.2-3.1 cm/m2 LVIDs: 2.93 2.0-3.6 cm LVPWd: 0.74 0.7-1.1 cm LA Diam: 3.90 2.7-3.8/3.0-4.0 cm LAIDs Index: 1.70 1.5-2.3 cm/m2 LV Mass: 201.23 67-162/88-224 g LV Mass Index: 87.49 43-95/49-115 g/m2 LVOT Diam: 2.20 3.0+(-)1.3 cm 2D Systolic Function EF 4C: 67.10 >55% EF 2C: 67.80 >55% EF BiP: 67.40 >55% Mitral Valve MV Pk E: 1.02 MV PK A: 0.67 MV Decel Time: 210.00 E/A: 1.50 E'Lateral: 8.59 E'Medial: 7.40 E/E' Med: 13.80 E/E' Lat: 11.90 PHT: 62.00 MVA PHT: 3.55 Decel Day: 4.85 Aortic Valve AoV Pk Jason: 1.55 AoV Pk Grad: 10.00 YARELIS: 3.39 LVOT LVOT Pk Jason: 1.39 LVOT Mn Jason: 0.87 LVOT VTI: 0.27 LVOT Pk Grad: 8.00 LVOT Mn Grad: 4.00 LVOT Diam: 2.20 LVOT Area: 3.80 Diastolic Function MV Pk E: 1.02 MV Pk A: 0.67 E/A: 1.50 E'Medial: 7.40 E/E' Med: 13.80 E' Laterial: 8.59 E/E' Lat: 11.90 Right Ventricle TAPSE (mm): 18.20 TVS' Jason: 20.60 Tricuspid Valve TR Pk Jason: 2.15 TR Pk Grad: 18.00 RA Press: 3.00 RVSP: 21.00 Great Vessels Aorta Sinus of Valsalva: 2.80 2.0-3.5 cm Ao Asc: 3.30 2.1-3.4 cm Ao Arch: 2.90 Pulmonary Veins Pulm Vein S/D 0.90 Pulmonary Valve PV Pk Jason: 1.05 Peak PV Grad: 4.00 Updated in Other Vendor System with Status of Final Francisco Liz MD electronically signed on 07/06/2025 12:31:29 PM with status of Final
== END ==
LOC: HO.CARD 07:33
PROVIDERS: PCP Internal Medicine; Visit Provider Internal Medicine
DX: E11.9 Type 2 diabetes mellitus without complications (principal); G47.33 Obstructive sleep apnea (adult) (pediatric); E66.09 Other obesity due to excess calories; R00.0 Tachycardia, unspecified; R00.2 Palpitations; R07.2 Precordial pain; I10 Essential (primary) hypertension; Z68.39 Body mass index [BMI] 39.0-39.9, adult; Z99.89 Dependence on other enabling machines and devices
CPT/HCPCS: 93017; 93242; 93306

== ENCOUNTER → 2025-07-05 07:35 | Outpatient (BNV) | payer OTHER, SELFPAY | PROVIDERS: PCP Internal Medicine | DX: R00.0 Tachycardia, unspecified (principal); I10 Essential (primary) hypertension; E66.9 Obesity, unspecified | CPT/HCPCS: 93016; 93018; 93306 ==

== ENCOUNTER → 2025-07-19 10:36 | Outpatient (REF) | payer OTHER, SELFPAY ==
--- NOTE | 2025-07-19 10:38 | CA_ITS ---
Acquisition Time: 2025-07-19 10:50:55 Total Exercise Time: 00:05:30 Test Indications: Abnormal Treadmill Test CP Medications: SEE H&P Protocol: JUICE Max HR: 230 BPM 129% of Pred: 177 BPM Max BP: 170/68 mmHG Max Work Load: 7.0 METS Exercise stress test with exercise 5 mins 30 secs of Juice Protocol, achieving 91% mPHR, with reports of baseline 3/10 left sided chest tightnes that changed to 5/10 with exercise, with SOB, with PACs and brief runs at the end of exercise- max 6 beats, with normotensive response to exercise. Without any EKG changes meeting criteria for ischemia. In recovery, breathing improved and chest tightness returned to baseline. Echo images obtained by tech at rest and post peak exercise. Definity contrast utilized. Test reviewed with Dr. Liz. Referred By: Alonzo Kramer Electronically Signed By: Alonzo Kramer
== END ==
LOC: HO.CARD 10:36
PROVIDERS: PCP Internal Medicine
DX: R07.9 Chest pain, unspecified (principal)
CPT/HCPCS: 93350; Q9957

== ENCOUNTER → 2025-07-19 10:38 | Outpatient (BNV) | payer OTHER, SELFPAY | PROVIDERS: PCP Internal Medicine | DX: I49.1 Atrial premature depolarization (principal); R07.9 Chest pain, unspecified; R06.02 Shortness of breath | CPT/HCPCS: 93016; 93018; 93350; 93352 ==